=== PATIENT | female | born 1945 | race Caucasian/White ===

== ENCOUNTER 2023-05-22 09:00 | Inpatient (IN) | payer MEDICARE ==
[~2023-05-22] VITALS: Ht 165.1 cm; Wt 75.7 kg
[2023-05-22] MEDS ORDERED: PANTOPRAZOLE 40 MG VIAL ONE (09:28)
[2023-05-22] MEDS ORDERED: ONDANSETRON HCL/PF 4 MG/2 ML VIAL ONE ×2 (09:28→13:55)
[2023-05-22] MEDS ORDERED: MAG HYDROX/AL HYDROX/SIMETH 30 ML UDC ONE (09:29)
[2023-05-22] MEDS ORDERED: ONDANSETRON HCL/PF 4 MG/2 ML VIAL IVP ONE (09:30)
[2023-05-22] MEDS ORDERED: PANTOPRAZOLE 40 MG VIAL IV ONE (09:30)
[2023-05-22] MEDS ORDERED: LIDOCAINE VISCOUS 2% UD 15 ML UDC MM ONE (09:30)
[2023-05-22] MEDS ORDERED: MAG HYDROX/AL HYDROX/SIMETH 30 ML UDC PO ONE (09:30)
[2023-05-22] MEDS ORDERED: IV NS 0.9% 1,000 ML BAG IV ONE (09:30)
[2023-05-22 10:23] LABS: ALANINE AMINOTRANSFERASE 20 U/L (12-78); ALBUMIN 3.2 g/dL (3.4-5.0); ALKALINE PHOSPHATASE 101 U/L (46-116); ASPARTATE AMINOTRANSFERASE 15 U/L (15-37); BILIRUBIN,DIRECT 0.1 mg/dL (0.0-0.2); BILIRUBIN,TOTAL 0.3 mg/dL (0.2-1.0); CALCIUM, SERUM 10.1 mg/dL (8.5-10.1); CARBON DIOXIDE 27 mmol/L (21-32); CHLORIDE 100 mmol/L (98-107); GLUCOSE 108 mg/dL (74-106); LIPASE 40 U/L (16-77); POTASSIUM 3.8 mmol/L (3.5-5.1); SODIUM SERUM 134 mmol/L (136-145); TOTAL PROTEIN, SERUM 8.3 g/dL (6.4-8.2); UREA NITROGEN, BLOOD 28 mg/dL (7-18)
[2023-05-22 10:35] LABS: INR 0.97 (0.91-1.10); PARTIAL THROMBOPLASTIN TIME 24.8 SEC (24.3-34.3); PROTHROMBIN TIME 10.3 SECS (9.2-11.1)
[2023-05-22] MEDS ORDERED: IOHEXOL-300 100 ML VIAL IV ONE (10:46)
[2023-05-22] MEDS ORDERED: IV NS 0.9% 250 ML IV ONE (10:46)
[2023-05-22 10:52] LABS: LACTIC ACID 2.7 mmol/L (0.4-2.0)
[2023-05-22] MEDS ORDERED: VENL150C2 PO (10:54)
[2023-05-22] MEDS ORDERED: MAGN250T10 PO (10:54)
[2023-05-22] MEDS ORDERED: ATOR20TA PO (10:54)
[2023-05-22] MEDS ORDERED: LEVO88TA5 PO (10:54)
[2023-05-22] MEDS ORDERED: QUET50TA PO (10:54)
[2023-05-22] MEDS ORDERED: ALLO100T PO (10:54)
[2023-05-22] MEDS ORDERED: POTA99TA14 PO (10:54)
[2023-05-22] MEDS ORDERED: BUSP10TA35 PO (10:54)
[2023-05-22] MEDS ORDERED: TRAZ-182 PO (10:54)
[2023-05-22] MEDS ORDERED: ESOM40CA PO (10:54)
[2023-05-22] MEDS ORDERED: CHOL500062 PO (10:54)
[2023-05-22] MEDS ORDERED: FURO-145 PO (10:54)
[2023-05-22] MEDS ORDERED: NITR100C PO (10:54)
[2023-05-22 11:20] LABS: BASOPHILS # (AUTO) 0.1 K/uL (0.0-0.2); BASOPHILS % (AUTO) 0.9 % (0.0-2.0); EOSINOPHILS # (AUTO) 0.1 K/uL (0.0-0.7); EOSINOPHILS % (AUTO) 1.3 % (0.0-6.0); HEMATOCRIT 31 % (33-45); HEMOGLOBIN 10.6 g/dL (11.5-14.8); MEAN CORPUSCULAR HEMOGLOBIN 31 PG (26.0-33.0); MEAN CORPUSCULAR HGB CONC 34 g/dl (31.0-36.0); MEAN CORPUSCULAR VOLUME 92 fL (82-100); MONOCYTES # (AUTO) 0.6 K/uL (0.1-1.30); MONOCYTES % (AUTO) 7.5 % (2.0-12.0); NEUTROPHILS # (AUTO) 5.1 K/uL (1.8-8.9); NEUTROPHILS % (AUTO) 65.3 % (43.0-81.0); PLATELET COUNT (AUTO) 359 K/uL (150-450); RED BLOOD CELL COUNT(AUTO) 3.43 MIL/uL (4.0-5.2); RED CELL DISTRIBUTION WIDTH 14.5 % (11.5-15.0); WHITE BLOOD COUNT (AUTO) 7.9 K/uL (4.3-11.0)
[2023-05-22] MEDS ORDERED: ONDANSETRON HCL/PF - ER 4 MG/2 ML VIAL IV ONE (14:00)
[2023-05-22 20:10] VITALS: BP 123/68; TEMP 98.8; O2SAT 97
[2023-05-22] MEDS ORDERED: ACETAMINOPHEN 325 MG TABLET PO PRN (21:00)
[2023-05-22] MEDS ORDERED: Z GUARD REMEDY 4 OZ OINT TP PRN (21:00)
[2023-05-22] MEDS: MORPHINE SULFATE INJ 2 MG/ML DISP.SYRIN IV PRN (21:09)
[2023-05-22] MEDS: PANTOPRAZOLE 40 MG VIAL IV SCH (21:11)
[2023-05-22] MEDS: TRAZODONE 50 MG TABLET PO SCH (21:14)
[2023-05-22] MEDS: QUETIAPINE FUMARATE 25 MG TABLET PO SCH (21:14)
[2023-05-22] MEDS: ATORVASTATIN 10 MG TABLET PO SCH (21:14)
[2023-05-22 21:21] LABS: HEMOGLOBIN 9.3 g/dL (11.5-14.8)
[2023-05-22] MEDS: VENLAFAXINE XR 150 MG CAP.SR.24H PO SCH (22:22)
[2023-05-22] MEDS: IV LR 1000 ML 1,000 ML IV PRN (22:23)
[2023-05-22 22:48] LABS: THYROID STIMULATING HORMONE 2.205 uIU/mL (0.358-3.74)
[2023-05-23] VITALS: BP 102/54; TEMP 98.6; O2SAT 97
[2023-05-23 01:54] LABS: HEMOGLOBIN 7.9 g/dL (11.5-14.8)
[2023-05-23 04:00] VITALS: BP_SYST 102; BP_SYST 129; BP_DIAS 56; BP_DIAS 57; TEMP 98.6; O2SAT 96
[2023-05-23 07:08] LABS: ALBUMIN 2.7 g/dL (3.4-5.0); BILIRUBIN,TOTAL 0.3 mg/dL (0.2-1.0); CALCIUM, SERUM 9.5 mg/dL (8.5-10.1); CREATININE 1.1 mg/dL (0.6-1.3); PHOSPHORUS 4.5 mg/dL (2.5-4.9); POTASSIUM 3.9 mmol/L (3.5-5.1); TOTAL PROTEIN, SERUM 6.7 g/dL (6.4-8.2)
[2023-05-23 07:17] LABS: BASOPHILS # (AUTO) 0.1 K/uL (0.0-0.2); BASOPHILS % (AUTO) 1.1 % (0.0-2.0); EOSINOPHILS # (AUTO) 0.2 K/uL (0.0-0.7); EOSINOPHILS % (AUTO) 4.1 % (0.0-6.0); HEMATOCRIT 26 % (33-45); HEMOGLOBIN 8.6 g/dL (11.5-14.8); LYMPHOCYTES # (AUTO) 2.1 K/uL (0.8-4.8); LYMPHOCYTES % (AUTO) 39.7 % (20.0-44.0); MEAN CORPUSCULAR HEMOGLOBIN 30 PG (26.0-33.0); MEAN CORPUSCULAR HGB CONC 33 g/dl (31.0-36.0); MEAN CORPUSCULAR VOLUME 92 fL (82-100); MONOCYTES # (AUTO) 0.6 K/uL (0.1-1.30); NEUTROPHILS # (AUTO) 2.3 K/uL (1.8-8.9); NEUTROPHILS % (AUTO) 43.1 % (43.0-81.0); PLATELET COUNT (AUTO) 290 K/uL (150-450); RED BLOOD CELL COUNT(AUTO) 2.86 MIL/uL (4.0-5.2); RED CELL DISTRIBUTION WIDTH 14.9 % (11.5-15.0); WHITE BLOOD COUNT (AUTO) 5.4 K/uL (4.3-11.0)
[2023-05-23 07:30] VITALS: BP 120/64; TEMP 98.5; O2SAT 93
[2023-05-23] MEDS: PANTOPRAZOLE 40 MG VIAL IV SCH ×2 (09:02→16:17)
[2023-05-23] MEDS: FUROSEMIDE 20 MG TABLET PO SCH (09:02)
[2023-05-23] MEDS: ALLOPURINOL 100 MG TABLET PO SCH (09:03)
[2023-05-23] MEDS: busPIRone 5 MG TABLET PO SCH ×3 (09:03→16:17)
[2023-05-23] MEDS: LEVOTHYROXINE SODIUM 88 MCG TABLET PO SCH (09:05)
[2023-05-23] MEDS: MORPHINE SULFATE INJ 2 MG/ML DISP.SYRIN IV PRN ×2 (09:31→13:41)
[2023-05-23] MEDS: DOCUSATE SODIUM 100 MG CAPSULE PO SCH ×2 (10:30→16:31)
[2023-05-23 14:32] LABS: HEMOGLOBIN 8.3 g/dL (11.5-14.8)
[2023-05-23 16:00] VITALS: BP 116/59; TEMP 97.3; O2SAT 94
[2023-05-23] MEDS: FLUTICASONE PROPIONATE 16 GM BOTTLE NS SCH (17:13)
[2023-05-23] MEDS: IV LR 1000 ML 1,000 ML IV PRN (17:18)
[2023-05-23] MEDS ORDERED: FAMOTIDINE/PF INJ 20 MG/2 ML VIAL IV ONE (18:11)
[2023-05-23] MEDS: ONDANSETRON HCL/PF 4 MG/2 ML VIAL IVP PRN (18:14)
[2023-05-23 20:00] VITALS: BP 119/68; TEMP 98.4; O2SAT 94
[2023-05-23 20:21] VITALS: BP 119/68; TEMP 98.4; O2SAT 94
[2023-05-23] MEDS: HYDROMORPHONE 1 MG/1 ML DISP.SYRIN IV PRN (21:22)
[2023-05-23] MEDS: QUETIAPINE FUMARATE 25 MG TABLET PO SCH (21:28)
[2023-05-23] MEDS: ATORVASTATIN 10 MG TABLET PO SCH (21:28)
[2023-05-23] MEDS: VENLAFAXINE XR 150 MG CAP.SR.24H PO SCH (21:28)
[2023-05-23] MEDS: TRAZODONE 50 MG TABLET PO SCH (21:28)
[2023-05-24] VITALS: BP 107/56; TEMP 98.4; O2SAT 94
[2023-05-24 04:00] VITALS: BP 114/68; TEMP 98; O2SAT 95
[2023-05-24] MEDS: IV LR 1000 ML 1,000 ML IV PRN (06:30)
[2023-05-24 06:51] LABS: BASOPHILS # (AUTO) 0.1 K/uL (0.0-0.2); BASOPHILS % (AUTO) 0.8 % (0.0-2.0); EOSINOPHILS # (AUTO) 0.2 K/uL (0.0-0.7); EOSINOPHILS % (AUTO) 3.5 % (0.0-6.0); HEMATOCRIT 26 % (33-45); HEMOGLOBIN 8.6 g/dL (11.5-14.8); LYMPHOCYTES % (AUTO) 31.3 % (20.0-44.0); MEAN CORPUSCULAR HEMOGLOBIN 31 PG (26.0-33.0); MEAN CORPUSCULAR HGB CONC 33 g/dl (31.0-36.0); MEAN CORPUSCULAR VOLUME 93 fL (82-100); MONOCYTES # (AUTO) 0.9 K/uL (0.1-1.30); MONOCYTES % (AUTO) 13.6 % (2.0-12.0); NEUTROPHILS # (AUTO) 3.2 K/uL (1.8-8.9); NEUTROPHILS % (AUTO) 50.8 % (43.0-81.0); PLATELET COUNT (AUTO) 277 K/uL (150-450); RED BLOOD CELL COUNT(AUTO) 2.79 MIL/uL (4.0-5.2); WHITE BLOOD COUNT (AUTO) 6.3 K/uL (4.3-11.0)
[2023-05-24] MEDS: HYDROMORPHONE 1 MG/1 ML DISP.SYRIN IV PRN (07:41)
[2023-05-24] MEDS: LEVOTHYROXINE SODIUM 88 MCG TABLET PO SCH (07:41)
[2023-05-24] MEDS: ONDANSETRON HCL/PF 4 MG/2 ML VIAL IVP PRN (07:46)
[2023-05-24 08:00] VITALS: BP 125/79; TEMP 98.6; O2SAT 94
[2023-05-24 08:07] LABS: CREATININE 1.1 mg/dL (0.6-1.3); MAGNESIUM 1.8 mg/dL (1.8-2.4); PHOSPHORUS 4.3 mg/dL (2.5-4.9); POTASSIUM 3.8 mmol/L (3.5-5.1)
[2023-05-24] MEDS: DOCUSATE SODIUM 100 MG CAPSULE PO SCH ×2 (09:00→17:00)
[2023-05-24] MEDS: FUROSEMIDE 20 MG TABLET PO SCH (09:05)
[2023-05-24] MEDS: cetrizine 10 MG TABLET PO SCH (09:05)
[2023-05-24] MEDS: PANTOPRAZOLE 40 MG VIAL IV SCH ×2 (09:05→17:33)
[2023-05-24] MEDS: ALLOPURINOL 100 MG TABLET PO SCH (09:05)
[2023-05-24] MEDS: busPIRone 5 MG TABLET PO SCH ×3 (09:06→17:00)
[2023-05-24] MEDS: FLUTICASONE PROPIONATE 16 GM BOTTLE NS SCH ×2 (09:12→17:44)
[2023-05-24 12:00] VITALS: BP 140/73; TEMP 97.9; O2SAT 92
[2023-05-24 16:00] VITALS: BP 111/64; TEMP 99; O2SAT 92
[2023-05-24 20:00] VITALS: BP 132/75; TEMP 98.5; O2SAT 95
[2023-05-24] MEDS: ATORVASTATIN 10 MG TABLET PO SCH (21:24)
[2023-05-24] MEDS: QUETIAPINE FUMARATE 25 MG TABLET PO SCH (21:25)
[2023-05-24] MEDS: TRAZODONE 50 MG TABLET PO SCH (21:25)
[2023-05-24] MEDS: VENLAFAXINE XR 150 MG CAP.SR.24H PO SCH (21:25)
[2023-05-25] VITALS: BP 141/77; TEMP 98; O2SAT 94
[2023-05-25] MEDS: IV LR 1000 ML 1,000 ML IV PRN (01:51)
[2023-05-25 04:00] VITALS: BP 108/67; TEMP 98.1; O2SAT 98
[2023-05-25] MEDS: LEVOTHYROXINE SODIUM 88 MCG TABLET PO SCH (07:37)
[2023-05-25] MEDS: HYDROMORPHONE 1 MG/1 ML DISP.SYRIN IV PRN ×2 (07:41→14:22)
[2023-05-25 08:33] VITALS: BP 141/72; TEMP 97.2; O2SAT 97
[2023-05-25] MEDS: PANTOPRAZOLE 40 MG VIAL IV SCH ×2 (09:05→17:05)
[2023-05-25] MEDS: cetrizine 10 MG TABLET PO SCH (09:05)
[2023-05-25] MEDS: busPIRone 5 MG TABLET PO SCH ×3 (09:05→17:05)
[2023-05-25] MEDS: ALLOPURINOL 100 MG TABLET PO SCH (09:05)
[2023-05-25] MEDS: DOCUSATE SODIUM 100 MG CAPSULE PO SCH ×2 (09:05→17:05)
[2023-05-25] MEDS: FUROSEMIDE 20 MG TABLET PO SCH (09:05)
[2023-05-25] MEDS: FLUTICASONE PROPIONATE 16 GM BOTTLE NS SCH ×2 (09:06→17:06)
[2023-05-25] MEDS ORDERED: PANT40TA2 PO (12:28)
[2023-05-25 12:53] VITALS: BP 106/69; TEMP 97.5; O2SAT 88
[2023-05-25 18:11] VITALS: BP 108/61; TEMP 98.4; O2SAT 94
== END 2023-05-25 19:30 | disposition home or self-care (01) | DRG 378 ==
LOC: ER 09:05 → TELE 19:41
PROVIDERS: ADMIT Nurse Practitioner Acute Care; ATTEND Nurse Practitioner Acute Care
PROC: 0DB68ZX Excision of Stomach, Via Natural or Artificial Opening Endoscopic, Diagnostic (ICD-10-PCS; principal; 2023-05-24)
DX: K29.71 Gastritis, unspecified, with bleeding (principal); D62 Acute posthemorrhagic anemia; E87.1 Hypo-osmolality and hyponatremia; E87.20 Acidosis, unspecified; K44.9 Diaphragmatic hernia without obstruction or gangrene; K31.7 Polyp of stomach and duodenum; E03.9 Hypothyroidism, unspecified; E78.5 Hyperlipidemia, unspecified; F32.A Depression, unspecified; I10 Essential (primary) hypertension; K21.9 Gastro-esophageal reflux disease without esophagitis; K22.89 Other specified disease of esophagus; M54.2 Cervicalgia
CPT/HCPCS: 36415; 80048-TC; 80053-TC; 80061-TC; 80076-TC; 82962-TC; 83540-TC; 83605-TC; 83690-TC; 83735-TC; 84100-TC; 84443-TC; 85025-TC; 85027-TC; 85045-TC; 85730-TC; 87081-TC; A4223; C9113; G0378; J1170; J2270; J2405; J2704; J3490; J7030; J7050; J7120; Q9967

== ENCOUNTER 2023-06-03 10:13 | Emergency (ER) | payer MEDICARE ==
[~2023-06-03] VITALS: Ht 165.1 cm; Wt 72.6 kg
[~2023-06-03 10:13] MED LIST: ALLO100T PO; ATOR20TA PO; BUSP10TA35 PO; CHOL500062 PO; ESOM40CA PO; FURO-145 PO; LEVO88TA5 PO; MAGN250T10 PO; PANT40TA2 PO; POTA99TA14 PO; QUET50TA PO; TRAZ-182 PO; VENL150C2 PO
[2023-06-03] MEDS ORDERED: LOSA50TA39 PO (10:46)
[2023-06-03] MEDS ORDERED: PYRI100T10 PO (10:46)
[2023-06-03] MEDS ORDERED: PANT40TA49 PO (10:46)
[2023-06-03] MEDS ORDERED: CYAN500T9 PO (10:46)
[2023-06-03] MEDS ORDERED: CALC-952 PO (10:46)
[2023-06-03] MEDS ORDERED: KETOROLAC TROMETHAMINE INJ 60 MG/2 ML VIAL IM ONE (11:00)
[2023-06-03] MEDS ORDERED: CYCLOBENZAPRINE 10 MG TABLET PO ONE (11:00)
[2023-06-03] MEDS ORDERED: CYCLOBENZAPRINE 10 MG TABLET ONE (11:20)
[2023-06-03] MEDS ORDERED: KETOROLAC TROMETHAMINE INJ 30 MG/ML VIAL ONE (11:20)
[2023-06-03] MEDS ORDERED: CYCL5TAB PO (12:36)
[2023-06-03 12:46] VITALS: BP 142/70; TEMP 98.7; O2SAT 100
== END 2023-06-03 12:46 | disposition home or self-care (01) ==
LOC: ER 11:00
DX: M54.50 Low back pain, unspecified (principal); I10 Essential (primary) hypertension; E03.9 Hypothyroidism, unspecified; Z88.8 Allergy status to other drugs, medicaments and biological substances; Z79.899 Other long term (current) drug therapy; W01.0XXA Fall on same level from slipping, tripping and stumbling without subsequent striking against object, initial encounter; Y93.89 Activity, other specified; Y92.89 Other specified places as the place of occurrence of the external cause; Y99.8 Other external cause status
CPT/HCPCS: 99285; 74176; 96372; J1885